=== PATIENT | male | born 1955 | race Caucasian/White ===

== ENCOUNTER 2019-06-13 15:39 | Emergency (ER) | payer OTHER ==
[2019-06-13 16:02] VITALS: BP 125/100
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
--- NOTE | 2019-06-13 18:24 | CT Report ---
Reason: neck pain Procedure Date: 06/13/2019 Accession Number: [id number] / [id number] Procedure: CT - CERVICAL SPINE WO CPT Code: FULL RESULT: EXAM: CT CERVICAL SPINE WITHOUT CONTRAST DATE: 06/13/2019 05:40 PM. HISTORY: Neck pain. COMPARISONS: None available. TECHNIQUE: Thin-section axial images were acquired of the cervical spine without contrast. Post-processing: Coronal and sagittal reformats. Other: None. In accordance with CT protocol optimization, one or more of the following dose reduction techniques were utilized for this exam: automated exposure control, adjustment of mA and/or KV based on patient size, or use of iterative reconstructive technique. FINDINGS: Alignment: No scoliosis or spondylolisthesis. Bones/discs: The bones are osteopenic. No acute fracture, subluxation, or compression deformity. Facet joint alignment is normal. Mild multilevel degenerative facet arthropathy. Degenerative disk disease at C6-C7 and C7-T1. Musculature: Unremarkable. Other: The paravertebral and prevertebral soft tissues are unremarkable. The lung apices are clear. IMPRESSION: Osteopenia. No acute fracture or malalignment of the cervical spine. RADIA
== END 2019-06-13 18:45 | disposition home or self-care (01) ==
LOC: ED 15:39
DX: M54.2 Cervicalgia (principal); V59.40XA Driver of pick-up truck or van injured in collision with unspecified motor vehicles in traffic accident, initial encounter; Y92.410 Unspecified street and highway as the place of occurrence of the external cause; R03.0 Elevated blood-pressure reading, without diagnosis of hypertension
CPT/HCPCS: 72125; 99283; 99284

== ENCOUNTER 2021-07-07 12:45 | Emergency (ER) | payer OTHER ==
[2021-07-07 13:27] LABS: BILIRUBIN,URINE NEGATIVE (NEGATIVE); CLARITY,URINE CLEAR (CLEAR); GLUCOSE, URINE (UA) NEGATIVE (NEGATIVE); ICTOTEST,URINE NEGATIVE; KETONES,URINE (UA) 15 mg/dL (NEGATIVE); LEUKOCYTE ESTERASE, URINE TRACE (NEGATIVE); NITRITE,URINE NEGATIVE (NEGATIVE); OCCULT BLOOD,URINE NEGATIVE (NEGATIVE); PH,URINE 5.5 PH (5.0-7.5); PROTEIN,URINE NEGATIVE (NEGATIVE); UROBILINOGEN,URINE 0.2 (NORMAL) E.U./dL (NORMAL)
[2021-07-07 13:37] LABS: BACTERIA,URINE Rare /HPF (None Seen); MUCUS,URINE Marked Strands; RBC,URINE 0-5 /HPF (0-5); SQUAMOUS EPITHELIAL CELL,UR FEW Squamous (<= Few)
[2021-07-07 14:10] LABS: BASOPHILS % (AUTO) 0.4 %; EOSINOPHILS # (AUTO) 0.3 10^3/uL (0.0-0.7); EOSINOPHILS % (AUTO) 2.7 %; HGB - HEMOGLOBIN 15.9 g/dL (14.0-18.0); LYMPHOCYTES # (AUTO) 1.4 10^3/uL (1.5-3.5); LYMPHOCYTES % (AUTO) 15.1 %; MEAN CORPUSCULAR HEMOGLOBIN 32.2 pg (27.0-31.0); MEAN CORPUSCULAR HGB CONC 33.1 g/dL (32.0-36.0); MEAN CORPUSCULAR VOLUME 97.2 fL (80.0-94.0); MEAN PLATELET VOLUME 9.9 fL (7.4-11.4); MONOCYTES # (AUTO) 0.6 10^3/uL (0.0-1.0); MONOCYTES % (AUTO) 6.4 %; NEUTROPHILS % (AUTO) 75.3 %; PLT - PLATELET COUNT 216 10^3/uL (130-450); RED BLOOD COUNT 4.94 10^6/uL (4.70-6.10); RED CELL DISTRIBUTION WIDTH 12.6 % (12.0-15.0); WHITE BLOOD COUNT 9.3 x10^3/uL (4.8-10.8)
[2021-07-07 14:27] LABS: ALBUMIN 4.6 g/dL (3.2-5.5); ALBUMIN/GLOBULIN RATIO 1.4 (1.0-2.2); CALCIUM 9.5 mg/dL (8.5-10.3); CREATININE 1.1 mg/dL (0.6-1.2); POTASSIUM 4.3 mmol/L (3.5-5.0)
[2021-07-07] MEDS ORDERED: SODIUM CHLORIDE 0.9% 1,000 ML IV STA (14:38)
[2021-07-07] MEDS ORDERED: IOPAMIDOL-300 100 ML VIAL ONE (14:50)
--- NOTE | 2021-07-07 15:05 | ED Physician Documentation ---
PD HPI ABD PAIN - Stated complaint Stated Complaint: DIARRHEA - Chief complaint Chief Complaint: Abd Pain - History obtained from History obtained from: Patient - History of Present Illness Timing - onset: How many days ago (4) Timing - duration: Days (4) Timing - details: Gradual onset Pain level max: 6 Pain level now: 5 Quality: Aching, Pain Location: LLQ Radiation: No: Chest, , Lower back, Left flank, Left shoulder, Right flank, Right shoulder, Upper back Improved by: Laying still Worsened by: Moving, Palpation Associated symptoms: Diarrhea. No: Fever, Vomiting, Hematemesis, Constipation, Melena, Hematochezia, Dysuria, Hematuria, Chest pain, Dizzy, Near syncope / syncope, Testicular pain - Additional information Additional information: has a history of diverticulitis. Review of Systems Constitutional: denies: Fever, Chills Cardiac: denies: Chest pain / pressure, Palpitations Respiratory: denies: Cough GI: reports: Diarrhea. denies: Abdominal Pain, Nausea, Vomiting Skin: denies: Rash Musculoskeletal: denies: Neck pain, Back pain Neurologic: denies: Headache PD PAST MEDICAL HISTORY - Past Medical History Cardiovascular: Hypertension, High cholesterol : Benign prostate hypertrophy - Past Surgical History Past Surgical History: Yes General: Other Ortho: Carpal Tunnel surgery - Present Medications Home Medications: Ambulatory Orders Medication Instructions Recorded Confirmed Hydrocodone/Acetaminophen 1 - 2 each PO Q6H PRN #14 tablet 06/13/19 [Hydrocodon-Acetaminophen 5-325] Red Yeast Rice 600 mg PO DAILY 06/13/19 06/13/19 Terazosin HCl 1 mg PO DAILY 06/13/19 06/13/19 amLODIPine [Norvasc] 5 mg PO DAILY 06/13/19 06/13/19 Sulfamethox/Trimeth 800/160 1 each PO BID #20 tablet 07/07/21 [Bactrim Ds 800/160] metroNIDAZOLE [Flagyl] 500 mg PO TID #30 tablet 07/07/21 - Allergies Allergies/Adverse Reactions: Allergies Allergy/AdvReac Type Severity Reaction Status Date / Time Nsybkgd-Uwl-Dze Reductase Allergy Nausea Verified 07/07/21 12:51 Inhibitor "antibiotic" AdvReac Rash Uncoded 06/13/19 16:50 - Social History Does the pt smoke?: No Smoking Status: Never smoker Does the pt drink ETOH?: Yes Does the pt have substance abuse?: No - Immunizations Immunizations are current?: Yes PD ED PE NORMAL - Vitals Vital signs reviewed: Yes - General General: Alert and oriented X 3, No acute distress - HEENT HEENT: Moist mucous membranes - Neck Neck: Supple, no meningeal sign - Cardiac Cardiac: RRR, Strong equal pulses - Respiratory Respiratory: No respiratory distress, Clear bilaterally - Abdomen Abdomen: Soft, Non tender, Non distended - Back Back: No CVA TTP, No spinal TTP - Derm Derm: Warm and dry - Neuro Neuro: Alert and oriented X 3 - Psych Psych: Normal mood, Normal affect Results - Vitals Vitals: Vital Signs - 24 hr 07/07/21 07/07/21 07/07/21 12:52 12:55 14:55 Temperature 36.6 C 36.6 C 36.6 C Heart Rate 81 81 80 Respiratory 18 18 16 Rate Blood Pressure 125/91 H 125/91 H 122/88 H O2 Saturation 96 96 98 07/07/21 16:00 Temperature 36.5 C Heart Rate 80 Respiratory 16 Rate Blood Pressure 120/80 O2 Saturation 100 Oxygen O2 Source Room air - Labs Labs: Laboratory Tests 07/07/21 07/07/21 07/07/21 13:10 14:07 14:07 WBC 9.3 RBC 4.94 Hgb 15.9 Hct 48.0 MCV 97.2 H MCH 32.2 H MCHC 33.1 RDW 12.6 Plt Count 216 MPV 9.9 Neut # (Auto) 7.0 H Lymph # (Auto) 1.4 L [place] # (Auto) 0.6 Eos # (Auto) 0.3 Baso # (Auto) 0.0 Absolute Nucleated RBC 0.00 Nucleated RBC % 0.0 Sodium 142 Potassium 4.3 Chloride 104 Carbon Dioxide 27 Anion Gap 11.0 BUN 15 Creatinine 1.1 Estimated GFR (MDRD) 67 L Glucose 92 Calcium 9.5 Total Bilirubin 1.0 AST 20 ALT 27 Alkaline Phosphatase 92 Total Protein 8.0 Albumin 4.6 Globulin 3.4 Albumin/Globulin Ratio 1.4 Lipase 23 Urine Color YELLOW Urine Clarity CLEAR Urine pH 5.5 Ur Specific [place] >=1.030 H Urine Protein NEGATIVE Urine Glucose (UA) NEGATIVE Urine Ketones 15 H Urine Occult Blood NEGATIVE Urine Nitrite NEGATIVE Urine Bilirubin NEGATIVE Urine Urobilinogen 0.2 (NORMAL) Ur Leukocyte Esterase TRACE H Urine RBC 0-5 Urine WBC 11-25 H Ur Squamous Epith Cells FEW Squamous Urine Bacteria Rare Urine Mucus Marked Strands Ur Microscopic Review INDICATED Urine Culture Comments INDICATED - Rads (name of study) CT abdomen pelvis Radiology: Final report received, EMP read contemporaneously, See rad report (1. Descending and to a lesser degree sigmoid colonic inflammatory change appearing most consistent with colitis secondary to diverticulitis. No free air or abscess. ) PD MEDICAL DECISION MAKING - ED course Complexity details: reviewed results, re-evaluated patient, considered di fferential, d/w patient ED course: Patient with diverticulitis on CT. No evidence of perforation or abscess. Will place on antibiotics. He believes that he is allergic to amoxicillin, at first he thought he may be allergic to clindamycin. We will change him to Bactrim and Flagyl. Pain well controlled. Discussed risks and benefits of antibiotics and possibility of a diverticulitis may resolve without antibiotics, patient elects antibiotics. Patient counseled regarding signs and symptoms for which I believe and urgent re-evaluation would be necessary. Patient with good understanding of and agreement to plan and is comfortable going home at this time This document was made in part using voice recognition software. While efforts are made to proofread this document, sound alike and grammatical errors may occur. Departure - Departure Disposition: 01 Home, Self Care Clinical Impression: Diverticulitis Condition: Good Instructions: ED Diverticulitis Follow-Up: Provider,Other [Primary Care Provider] - Within 1 week Prescriptions: Sulfamethox/Trimeth 800/160 [Bactrim Ds 800/160] 1 each PO BID #20 tablet metroNIDAZOLE [Flagyl] 500 mg PO TID #30 tablet Comments: Take all antibiotics until gone. Drink plenty of fluids. Your prescription was sent to [facility] in [place]. You should start to improve over the next 2 to 3 days. Discharge Date/Time: 07/07/21 16:23
[2021-07-07] MEDS ORDERED: IOPAMIDOL-300 100 ML VIAL IVP ONE (15:14)
--- NOTE | 2021-07-07 15:37 | CT Report ---
PROCEDURE: Abdomen/Pelvis W INDICATIONS: LLQ pain, possible diverticulitis CONTRAST: IV CONTRAST: Isovue 300 ml: 100 PO CONTRAST: *NO PO CONTRAST TECHNIQUE: After the administration of IV contrast, 5 mm thick sections acquired from the diaphragms to the symp hysis. 5 mm thick coronal and sagittal reformats were acquired. For radiation dose reduction, the f ollowing was used: automated exposure control, adjustment of mA and/or kV according to patient size. COMPARISON: None. FINDINGS: Image quality: Excellent. ABDOMEN: Lung bases: Lung bases are clear. Heart size is normal. Solid organs: Liver is mildly enlarged with steatosis. The spleen is unremarkable. Gallbladder is u nremarkable Biliary system is non dilated. Pancreas enhances normally. No adrenal nodules. Kidney s demonstrate normal size and enhancement, without hydronephrosis. Right renal cyst is noted. Peritoneum and bowel: Bowel loops demonstrate colonic diverticula. There is a focus of thickened dis marleny descending colonic wall thickening with pericolonic inflammatory change. No perforation or absces s. There is a slight thickened appearance of colon extending into the sigmoid with questionable minim al pericolonic stranding. No free fluid or air. Appendix is normal. Nodes and vessels: No retroperitoneal or mesenteric adenopathy by size criteria. Aorta and inferior vena cava are normal in size. Miscellaneous: No ventral hernias. PELVIS: Genitourinary: Bladder wall thickness is normal. Miscellaneous: No inguinal hernias or adenopathy. Bones: No suspicious bony lesions. No vertebral body compression fractures. IMPRESSION: 1. Descending and to a lesser degree sigmoid colonic inflammatory change appearing most consistent wi th colitis secondary to diverticulitis. No free air or abscess. Reviewed by: Ketty Pimentel MD on 07/07/2021 3:36 PM PDT Approved by: Ketty Pimentel MD on 07/07/2021 3:36 PM PDT Station ID: [id number]
[2021-07-07 16:22] VITALS: BP 120/80
--- NOTE | 2021-07-09 09:18 | ED Physician Documentation ---
ED Addendum - Addendum Addendum: 07/09/21 09:17 Patient called, has ill feeling with abx, called in cipro 500mg po BID x10 days to [facility]. He will continue with flagyl, stop bactrim. Discussed return precautions.
== END 2021-07-07 16:23 | disposition home or self-care (01) ==
LOC: ED 12:45
DX: K57.32 Diverticulitis of large intestine without perforation or abscess without bleeding (principal); Z88.0 Allergy status to penicillin; I10 Essential (primary) hypertension
CPT/HCPCS: 36415; 74177; 80053; 81001; 83690; 85025; 87086; 96360; 99284; Q9967; 81003

== ENCOUNTER 2022-09-06 08:39 | Emergency (ER) | payer OTHER ==
[2022-09-06] MEDS ORDERED: iohexoL-300 100 ML VIAL ONE (08:58)
[2022-09-06] MEDS ORDERED: SODIUM CHLORIDE 0.9% 1,000 ML IV STA (09:04)
--- NOTE | 2022-09-06 09:06 | ED Physician Documentation ---
History of Present Illness - Stated complaint Stated Complaint: BACK PX/CONSTIPATION - Chief complaint Chief Complaint: Back Pain - Additonal information Additional information: Patient 67-year-old male presenting with complaint of back pain ongoing for 1 week as well as left lower quadrant pain and diarrhea this been ongoing for several weeks. Right low back pain that has been happening intermittently for the last several days. Severe enough that it is limited his activities of daily living. Left lower quadrant abdominal pain with diarrhea has been ongoing for 4 weeks. Seen by primary care, started on liquid diet and instructed to take rnww-nji-lqhjkmq fiber supplements with minimal relief. Past medical significant for diverticulitis. Denies fever, chills, chest pain. Review of Systems Ten Systems: 10 systems reviewed and negative Constitutional: denies: Fever Eyes: denies: Loss of vision Ears: denies: Loss of hearing Nose: denies: Rhinorrhea / runny nose Throat: denies: Dental pain / toothache Cardiac: denies: Chest pain / pressure Respiratory: denies: Dyspnea GI: reports: Abdominal Pain, Constipation, Diarrhea Musculoskeletal: reports: Back pain PD PAST MEDICAL HISTORY - Past Medical History Cardiovascular: Hypertension, High cholesterol : Benign prostate hypertrophy - Past Surgical History Past Surgical History: Yes General: Other Ortho: Carpal Tunnel surgery - Present Medications Home Medications: Ambulatory Orders Medication Instructions Recorded Confirmed Hydrocodone/Acetaminophen 1 - 2 each PO Q6H PRN #14 tablet 06/13/19 09/06/22 [Hydrocodon-Acetaminophen 5-325] Red Yeast Rice 600 mg PO DAILY 06/13/19 09/06/22 Terazosin HCl 1 mg PO DAILY 06/13/19 09/06/22 amLODIPine [Norvasc] 5 mg PO DAILY 06/13/19 09/06/22 Cyclobenzaprine HCl 5 mg PO DAILY 09/06/22 09/06/22 Oxycodone HCl/Acetaminophen 1 - 2 each PO Q6H PRN #14 tablet 09/06/22 [Percocet 5-325 mg Tablet] Tramadol HCl [Ultram] 50 mg PO DAILY 09/06/22 09/06/22 levoFLOXacin [Levaquin] 750 mg PO DAILY 7 Days #21 tablet 09/06/22 metroNIDAZOLE [Flagyl] 500 mg PO TID 7 Days #21 tablet 09/06/22 - Allergies Allergies/Adverse Reactions: Allergies Allergy/AdvReac Type Severity Reaction Status Date / Time Lskuifr-EPQ-BqJ Reductase Allergy Nausea Verified 07/07/21 12:51 Inhibitor [Edywmfs-Hek-Qdn Reductase Inhibitor] "antibiotic" AdvReac Rash Uncoded 06/13/19 16:50 - Social History Does the pt smoke?: No Smoking Status: Never smoker Does the pt drink ETOH?: Yes Does the pt have substance abuse?: No - Immunizations Immunizations are current?: Yes PD ED PE NORMAL - Vitals Vital signs reviewed: Yes - General General: Alert and oriented X 3 - HEENT HEENT: Atraumatic, PERRL, EOMI, Ears normal, Moist mucous membranes - Neck Neck: Supple, no meningeal sign, No bony TTP, No adenopathy, Thyroid normal - Cardiac Cardiac: RRR, No gallop, Strong equal pulses - Respiratory Respiratory: No respiratory distress - Abdomen Abdomen: Normal bowel sounds, Non tender - Male Male : Deferred - Rectal Rectal: Deferred - Back Back: No CVA TTP - Derm Derm: Normal color - Extremities Extremities: No deformity Results - Vitals Vitals: Vital Signs - 24 hr 09/06/22 08:46 Temperature 36.1 C L Heart Rate 87 Respiratory 17 Rate Blood Pressure 146/83 H O2 Saturation 98 Oxygen O2 Source Room air - Labs Labs: Laboratory Tests 09/06/22 09/06/22 09/06/22 09:02 09:02 09:02 WBC 6.5 RBC 5.15 Hgb 16.3 Hct 49.8 MCV 96.7 H MCH 31.7 H MCHC 32.7 RDW 12.0 Plt Count 239 MPV 10.1 Neut # (Auto) 4.1 Lymph # (Auto) 1.6 [place] # (Auto) 0.6 Eos # (Auto) 0.2 Baso # (Auto) 0.1 Absolute Nucleated RBC 0.00 Nucleated RBC % 0.0 Sodium 138 Potassium 3.9 Chloride 100 L Carbon Dioxide 27 Anion Gap 11.0 BUN 20 Creatinine 1.1 Estimated GFR (MDRD) 67 L Glucose 85 Lactic Acid 1.8 Calcium 9.9 Total Bilirubin 0.4 AST 27 ALT 26 Alkaline Phosphatase 89 Total Protein 8.1 Albumin 4.9 Globulin 3.2 Albumin/Globulin Ratio 1.5 Lipase 31 PD MEDICAL DECISION MAKING - ED course Complexity details: reviewed results, re-evaluated patient, d/w patient ED course: Patient is 67-year-old male with known history of diverticulitis presenting with chief complaint of back pain and left lower quadrant abdominal pain. Afebrile, hemodynamically stable. Benign abdominal exam. Labs within normal limits or nonactionable. CT abdomen pelvis consistent with noncomplicated diverticulitis. Given dose of Levofloxacin and Flagyl.in the emergency department. Will discharge withCourse antibiotics. We will provide short course Percocet for pain control. Instructed patient to hold his previously prescribed Ultram while taking Percocet so as to avoid oversedation and other complications. Careful follow-up with primary care. Clear return precautions given. Departure - Departure Disposition: Home, Self Care Clinical Impression: Diverticulitis, Back pain Instructions: NARCOTIC, Oral, ED Diverticulitis Prescriptions: metroNIDAZOLE [Flagyl] 500 mg PO TID 7 Days #21 tablet levoFLOXacin [Levaquin] 750 mg PO DAILY 7 Days #21 tablet Oxycodone HCl/Acetaminophen [Percocet 5-325 mg Tablet] 1 - 2 each PO Q6H PRN #14 tablet PRN Reason: pain Comments: Thank you for allowing us to care for you today at [facility]. Prescription sent electronically to [facility]. Today in the emergency department you are diagnosed with diverticulitis. Attached is some information about this condition. Would like you to be on a course of antibiotics. It will be important that you follow-up with your primary care doctor for medical recheck in the next few days. Also be prescribing you some stronger pain medication to take at home for your worsening low back pain. Please do not take this in conjunction with your Ultram as both medications are narcotics and can cause oversedation if taken together. If it anytime you have new or worsening symptoms please not hesitate to return.
[2022-09-06 09:14] LABS: BASOPHILS # (AUTO) 0.1 10^3/uL (0.0-0.1); BASOPHILS % (AUTO) 0.9 %; EOSINOPHILS # (AUTO) 0.2 10^3/uL (0.0-0.7); EOSINOPHILS % (AUTO) 2.6 %; HCT - HEMATOCRIT 49.8 % (42.0-52.0); HGB - HEMOGLOBIN 16.3 g/dL (14.0-18.0); LYMPHOCYTES # (AUTO) 1.6 10^3/uL (1.5-3.5); LYMPHOCYTES % (AUTO) 24.8 %; MEAN CORPUSCULAR HEMOGLOBIN 31.7 pg (27.0-31.0); MEAN CORPUSCULAR HGB CONC 32.7 g/dL (32.0-36.0); MEAN CORPUSCULAR VOLUME 96.7 fL (80.0-94.0); MEAN PLATELET VOLUME 10.1 fL (7.4-11.4); MONOCYTES # (AUTO) 0.6 10^3/uL (0.0-1.0); MONOCYTES % (AUTO) 8.8 %; NEUTROPHILS # (AUTO) 4.1 10^3/uL (1.5-6.6); NEUTROPHILS % (AUTO) 62.7 %; PLT - PLATELET COUNT 239 10^3/uL (130-450); RED BLOOD COUNT 5.15 10^6/uL (4.70-6.10); WHITE BLOOD COUNT 6.5 x10^3/uL (4.8-10.8)
[2022-09-06 09:32] LABS: ALBUMIN 4.9 g/dL (3.2-5.5); ALBUMIN/GLOBULIN RATIO 1.5 (1.0-2.2); BILIRUBIN,TOTAL 0.4 mg/dL (0.2-1.0); CALCIUM 9.9 mg/dL (8.5-10.3); CREATININE 1.1 mg/dL (0.6-1.2); POTASSIUM 3.9 mmol/L (3.5-5.0); TOTAL PROTEIN 8.1 g/dL (6.7-8.2)
--- NOTE | 2022-09-06 10:47 | CT Report ---
PROCEDURE: ABDOMEN/PELVIS W INDICATIONS: LLQ abd pain, h/o diverticulitis CONTRAST: 100ml Omnipaque 300 TECHNIQUE: After the administration of IV contrast, 5 mm thick sections acquired from the diaphragms to the symp hysis. 5 mm thick coronal and sagittal reformats were acquired. For radiation dose reduction, the f ollowing was used: automated exposure control, adjustment of mA and/or kV according to patient size. COMPARISON: CT dated 07/07/2021 FINDINGS: Image quality: Excellent. ABDOMEN: Lung bases: There is mild bibasilar scarring, as before. Lung bases are otherwise clear. Heart size is normal. Solid organs: Liver and spleen are normal in size and enhancement. Gallbladder is within normal curtis its Biliary system is non dilated. Pancreas enhances normally. No adrenal nodules. Kidneys demons trate normal size and enhancement, without hydronephrosis. Peritoneum and bowel: Diverticulosis of the descending colon. There is minimal thickening and amee lonic fat tearing involving the mid descending colon. Bowel loops demonstrate otherwise normal wall t hickness and caliber. No free fluid or air. Normal appendix. Nodes and vessels: No retroperitoneal or mesenteric adenopathy by size criteria. Aorta and inferior vena cava are normal in size. Miscellaneous: No ventral hernias. PELVIS: Genitourinary: Bladder wall thickness is normal. Miscellaneous: No inguinal hernias or adenopathy. Bones: No suspicious bony lesions. No vertebral body compression fractures. IMPRESSION: 1. Findings which would be consistent with mild descending colon diverticulitis in the appropriate cl inical setting. No pericolonic abscess. Follow-up colonoscopy is recommended to exclude underlying ne oplasm. 2. Normal appendix. Reviewed by: Isai Kenny MD on 09/06/2022 10:46 AM PST Approved by: Isai Kenny MD on 09/06/2022 10:46 AM PST Station ID: [id number]
[2022-09-06] MEDS ORDERED: levoFLOXacin 250 MG TABLET PO STA (11:06)
[2022-09-06] MEDS ORDERED: metroNIDAZOLE 250 MG TABLET PO STA (11:06)
[2022-09-06] MEDS ORDERED: iohexoL-300 100 ML VIAL IVP ONE (11:17)
[2022-09-06 11:27] VITALS: BP 130/86
== END 2022-09-06 11:31 | disposition home or self-care (01) ==
LOC: ED 08:39
DX: K57.32 Diverticulitis of large intestine without perforation or abscess without bleeding (principal)
CPT/HCPCS: 36415; 74177; 80053; 83605; 83690; 85025; 99283; 99284; A9270; Q9967